=== PATIENT | female | born 1995 | race Caucasian/White ===

== ENCOUNTER 2017-06-08 19:11 | Emergency (ER) | payer OTHER ==
[~2017-06-08] VITALS: Ht 160 cm; Wt 56.8 kg
[~2017-06-08 19:11] MED LIST: PREN29TA4 PO
[2017-06-08 20:47] VITALS: BP 122/68
== END 2017-06-08 21:03 | disposition home or self-care (01) ==
LOC: M ED 19:11
DX: Z04.1 Encounter for examination and observation following transport accident (principal); S20.319A Abrasion of unspecified front wall of thorax, initial encounter; V43.52XA Car driver injured in collision with other type car in traffic accident, initial encounter; W22.11XA Striking against or struck by driver side automobile airbag, initial encounter; Y92.411 Interstate highway as the place of occurrence of the external cause; Y93.89 Activity, other specified; Y99.8 Other external cause status; J30.2 Other seasonal allergic rhinitis